=== PATIENT | male | born 1970 | race Caucasian/White ===

== ENCOUNTER 2018-02-23 09:44 | Day surgery (SDC) | payer OTHER ==
[~2018-02-23 09:44] MED LIST: DOCU100 PO; OXYC5 PO; Robaxin750 MG PO
[2018-02-23] MEDS ORDERED: Amitriptyline100 MG (11:24)
[2018-02-23] MEDS ORDERED: ZESTRIL40 MG PO (11:24)
[2018-02-23] MEDS ORDERED: MELATONIN10 M2 PO (11:25)
[2018-02-23] MEDS ORDERED: METCAR500 PO (11:27)
[2018-02-24] MEDS ORDERED: LEVFLO500 IV (11:44)
== END 2018-02-23 12:10 | disposition home or self-care (01) ==
LOC: ATC 09:44
DX: A41.9 Sepsis, unspecified organism (principal); G47.33 Obstructive sleep apnea (adult) (pediatric); I10 Essential (primary) hypertension; T81.4XXA Infection following a procedure, initial encounter
CPT/HCPCS: 96365; J1956

== ENCOUNTER 2018-02-25 00:23 | Day surgery (SDC) | payer OTHER ==
[~2018-02-25 00:23] MED LIST changes: +Amitriptyline100 MG; +LEVFLO500 IV; +MELATONIN10 M2 PO; +METCAR500 PO; +ZESTRIL40 MG PO
== END 2018-02-25 12:12 | disposition home or self-care (01) ==
LOC: ATC 00:23
DX: T81.4XXA Infection following a procedure, initial encounter (principal); A41.9 Sepsis, unspecified organism; G47.33 Obstructive sleep apnea (adult) (pediatric); I10 Essential (primary) hypertension
CPT/HCPCS: 96365; J1956

== ENCOUNTER 2018-02-27 01:02 | Day surgery (SDC) | payer OTHER | END 2018-02-27 12:17 | disposition home or self-care (01) | LOC: ATC 01:02 | DX: T81.4XXA Infection following a procedure, initial encounter (principal); A41.9 Sepsis, unspecified organism; I10 Essential (primary) hypertension; G47.33 Obstructive sleep apnea (adult) (pediatric) | CPT/HCPCS: J1956 ==

== ENCOUNTER 2018-02-28 07:12 | Day surgery (SDC) | payer OTHER | END 2018-02-28 11:59 | disposition home or self-care (01) | LOC: ATC 07:12 | DX: T81.4XXA Infection following a procedure, initial encounter (principal); A41.9 Sepsis, unspecified organism; I10 Essential (primary) hypertension; G47.33 Obstructive sleep apnea (adult) (pediatric); E66.01 Morbid (severe) obesity due to excess calories | CPT/HCPCS: J1956 ==

== ENCOUNTER 2018-03-02 00:12 | Day surgery (SDC) | payer OTHER | END 2018-03-02 12:17 | disposition home or self-care (01) | LOC: ATC 00:12 | DX: T81.4XXA Infection following a procedure, initial encounter (principal); I10 Essential (primary) hypertension; G47.30 Sleep apnea, unspecified; A41.9 Sepsis, unspecified organism | CPT/HCPCS: 96365; J1956 ==

== ENCOUNTER 2018-03-06 00:45 | Day surgery (SDC) | payer OTHER | END 2018-03-06 11:48 | disposition home or self-care (01) | LOC: ATC 00:45 | DX: T81.4XXA Infection following a procedure, initial encounter (principal); G47.33 Obstructive sleep apnea (adult) (pediatric); I10 Essential (primary) hypertension; A41.9 Sepsis, unspecified organism; G47.30 Sleep apnea, unspecified | CPT/HCPCS: 96365; J1956 ==

== ENCOUNTER 2018-03-07 00:44 | Day surgery (SDC) | payer OTHER | END 2018-03-07 12:03 | disposition home or self-care (01) | LOC: ATC 00:44 | DX: T81.4XXA Infection following a procedure, initial encounter (principal); G47.33 Obstructive sleep apnea (adult) (pediatric); I10 Essential (primary) hypertension; A41.9 Sepsis, unspecified organism; E78.5 Hyperlipidemia, unspecified; F32.9 Major depressive disorder, single episode, unspecified; E66.01 Morbid (severe) obesity due to excess calories | CPT/HCPCS: 96365; J1956 ==

== ENCOUNTER 2018-03-08 00:26 | Day surgery (SDC) | payer OTHER | END 2018-03-08 11:54 | disposition home or self-care (01) | LOC: ATC 00:26 | DX: T81.4XXA Infection following a procedure, initial encounter (principal); A41.9 Sepsis, unspecified organism; G47.33 Obstructive sleep apnea (adult) (pediatric); I10 Essential (primary) hypertension; E78.5 Hyperlipidemia, unspecified | CPT/HCPCS: 96365; J1956 ==

== ENCOUNTER 2018-03-09 02:08 | Day surgery (SDC) | payer OTHER | END 2018-03-09 11:54 | disposition home or self-care (01) | LOC: ATC 02:08 | DX: Z45.2 Encounter for adjustment and management of vascular access device (principal); A41.9 Sepsis, unspecified organism; I10 Essential (primary) hypertension | CPT/HCPCS: 96365; 99211; J1956 ==

== ENCOUNTER → 2019-03-31 | Outpatient (CLI) | payer SELFPAY | END | disposition home or self-care (01) | LOC: LAB SHORT 11:20 → LAB 11:20 | DX: L08.9 Local infection of the skin and subcutaneous tissue, unspecified (principal) | CPT/HCPCS: 87070; 87077; 87147; 87186; 87205 ==

== ENCOUNTER → 2019-05-20 | Outpatient (CLI) | payer OTHER | END | disposition home or self-care (01) | LOC: PLD 08:17 → LAB SHORT 08:17 | DX: L03.032 Cellulitis of left toe (principal); M86.172 Other acute osteomyelitis, left ankle and foot; L81.9 Disorder of pigmentation, unspecified | CPT/HCPCS: 87070; 87205; 88305 ==

== ENCOUNTER → 2020-04-11 | Outpatient (CLI) | payer SELFPAY ==
[2020-04-11 10:12] LABS: BASOPHILS ABSOLUTE AUTO 0.06 K/mm3 (0.00-0.23); BASOPHILS PERCENT AUTO 1 % (0-2); EOSINOPHILS ABSOLUTE AUTO 0.39 K/mm3 (0.00-0.68); EOSINOPHILS PERCENT AUTO 6 % (0-6); Hematocrit 47.5 % (37.0-53.0); Hemoglobin 15.3 g/dL (13.5-17.5); IMMATURE GRAN ABSOLUTE AUTO 0.01 K/mm3 (0.00-0.10); IMMATURE GRAN PERCENT AUTO 0 % (0-1); LYMPHOCYTES ABSOLUTE AUTO 1.73 K/mm3 (0.84-5.20); LYMPHOCYTES PERCENT AUTO 25 % (21-46); MONOCYTES ABSOLUTE AUTO 0.72 K/mm3 (0.16-1.47); MONOCYTES PERCENT AUTO 10 % (4-13); Mean Corpuscular HGB 28.5 pg (26.0-34.0); Mean Corpuscular HGB Conc 32.2 g/dL (31.5-36.5); Mean Corpuscular Volume 89 fL (80-100); Mean Platelet Volume 9.5 fL (9.1-12.4); NEUTROPHILS ABSOLUTE AUTO 4.05 K/mm3 (1.96-9.15); NEUTROPHILS PERCENT AUTO 58 % (41-73); Platelet Count 221 K/mm3 (150-400); RDW Coefficient Variation 13.1 % (11.7-14.2); RDW Standard Deviation 42.3 fL (35.1-46.3); Red Blood Cell Count 5.36 M/mm3 (4.30-5.90); White Blood Cell Count 6.96 K/mm3 (4.00-11.30)
[2020-04-11 10:33] LABS: Albumin, Blood 3.5 g/dL (3.4-5.0); Albumin/Globulin Ratio 0.9 (0.8-1.8); Bilirubin, Total 0.3 mg/dL (0.1-1.0); Bun/Creatinine Ratio 7.2 (12.0-20.0); Calcium, Blood 8.4 mg/dL (8.5-10.1); Creatinine, Blood 1.39 mg/dL (0.60-1.20); Globulin, Blood 3.9 g/dL (2.2-4.0); Potassium, Blood 4.4 mmol/L (3.5-5.5); Total Protein, Blood 7.4 g/dL (6.4-8.2)
== END | disposition home or self-care (01) ==
LOC: LAB 08:52 → LAB SHORT 08:52
PROVIDERS: Nurse Practitioner Family
DX: R10.9 Unspecified abdominal pain (principal)
CPT/HCPCS: 80053; 83690; 85025